=== PATIENT | female | born 1980 | race Caucasian/White ===

== ENCOUNTER 2017-02-13 17:34 | Emergency (ER) | payer OTHER ==
[2017-02-13 17:53] LABS: EOSINOPHIL (%) 1.1 % (0-5); EOSINOPHIL COUNT 0.1 K/uL (0-0.3); HEMATOCRIT 47.5 % (36.0-46.0); IMMATURE GRANULOCYTE (%) 0.7 % (0.0-0.7); IMMATURE GRANULOCYTE COUNT 0.1 K/uL; INSTRUMENT ABS NEUTROPHIL CT 7.6 K/uL; LYMPHOCYTE COUNT 3.1 K/uL (1.0-2.8); MCH 29.8 PG (29.0-34.0); MCHC 33.7 G/DL (30.0-36.0); MCV 88.5 FL (83-99); MEAN PLAT.VOLUME 9.8 uM^3 (9.5-12.4); MONOCYTE (%) 6.4 % (3-12); MONOCYTE COUNT 0.8 K/uL (0-0.8); NEUTROPHIL COUNT 7.6 K/uL (1.8-6.4); PLATELET COUNT 241 K/uL (156-360); RBC DIS.WIDTH-CV 12.4 % (11.8-14.6); RBC DIS.WIDTH-SD 40.3 % (39-53); RED BLOOD COUNT 5.37 M/uL (3.80-5.20); WHITE BLOOD COUNT 11.6 K/uL (4.1-10.2)
[2017-02-13 18:03] LABS: AMYLASE 49 IU/L (1-118); CHLORIDE 111 mEq/L (99-109); POTASSIUM 3.9 mEq/L (3.7-5.4); SODIUM 138 mEq/L (136-147)
[2017-02-13 18:05] LABS: GLUCOSE 96 mg/dL (70-99)
[2017-02-13 18:06] LABS: ANION GAP 9 MEQ/L (2-14)
[2017-02-13 18:08] LABS: SERUM ETHYL ALCOHOL < 10 mg/dL
[2017-02-13 18:09] LABS: GFR ESTIMATE (CALCULATED) > 59 mL/min/
[2017-02-13 18:10] LABS: UREA NITROGEN (BUN) 8 mg/dL (9-23)
[2017-02-13 18:12] LABS: LIPASE 32 U/L (1.0-51.0)
[2017-02-13 18:17] LABS: QUANTITATIVE HCG < 4.0 MIU/ML
== END 2017-02-13 19:21 | disposition home or self-care (01) ==
LOC: TRA 17:34
PROVIDERS: Emergency Medicine
DX: S70.11XA Contusion of right thigh, initial encounter (principal); V49.40XA Driver injured in collision with unspecified motor vehicles in traffic accident, initial encounter
CPT/HCPCS: 71010; 72170; 73552; 80048; 81003; 82150; 83690; 84702; 85025; 86850; 86900; 86901; 99281; 99285; G0480; J2270; J2405; J3010